=== PATIENT | female | born 2000 | race Caucasian/White ===

== ENCOUNTER 2023-09-13 10:32 | Outpatient (CLI) | payer OTHER, SELFPAY ==
[2023-09-13 14:08] LABS: SARS PCR* Negative SARS-CoV-2 (Negative)
== END 2023-09-13 10:33 | disposition home or self-care (01) ==
LOC: FBOREF 10:33
PROVIDERS: PCP Family Medicine; Visit Provider Family Medicine
DX: Z11.52 Encounter for screening for COVID-19 (principal); J02.9 Acute pharyngitis, unspecified; R05.1 Acute cough
CPT/HCPCS: 87635; 87651

== ENCOUNTER 2023-12-04 09:49 | Outpatient (CLI) | payer OTHER, SELFPAY ==
--- NOTE | 2023-12-04 10:15 | CRLHL7_ITS ---
For Patients: As a result of the Century Cures Act, medical imaging exams and procedure reports are released immediately into your electronic medical record. You may view this report before your referring provider. If you have questions, please contact your health care provider. Indication: PARESTHESIA OF SKIN Technique: Noncontrast sagittal T1, axial FLAIR, T2 turbo spine echo, and diffusion weighted images. Supplemental post contrast T1 weighted axial and coronal sequences are provided after administration of 20 mL gadolinium-based IV contrast. Comparison: No prior studies available for comparison at this institution. Findings: The ventricles, sulci and gyri are normal size, shape and contour for age. The midline structures are centrally located with no evidence of shift. There are no suspicious intra or extra-axial fluid collections. No evidence of restricted diffusion to suggest acute ischemia. Partially empty configuration of the sella. There is a 1 cm dural-based extra-axial enhancing lesion along the left lateral cerebellum compatible with meningioma. Mild mass effect on the underlying parenchyma without edema. Expected flow voids in the cavernous carotids and basilar artery. Incidental retention cysts in the nasopharyngeal mucosa. Impression: 1. No evidence of acute intracranial abnormality. 2. There is a 1 cm meningioma along the left lateral cerebellum. Mild mass effect on the underlying parenchyma without edema. 3. Partially empty configuration of the sella. While this could represent a normal variant, it is also commonly seen in the setting of idiopathic intracranial hypertension. Dictated by Ben Shields MD @ 12/04/2023 12:13:39 PM (Electronically Signed)
== END 2023-12-04 09:50 | disposition home or self-care (01) ==
LOC: MRI 09:50
PROVIDERS: PCP Family Medicine; Visit Provider Family Medicine
DX: R20.2 Paresthesia of skin (principal); G93.9 Disorder of brain, unspecified
CPT/HCPCS: 70553; A9575

== ENCOUNTER 2024-04-15 11:22 | Outpatient (CLI) | payer BC, SELFPAY | END 2024-04-15 11:23 | disposition home or self-care (01) | PROVIDERS: PCP Family Medicine; Visit Provider Family Medicine | DX: Z01.818 Encounter for other preprocedural examination (principal) | CPT/HCPCS: 80053; 85025 ==